=== PATIENT | female | born 1970 | race Caucasian/White ===

== ENCOUNTER 2016-09-27 16:02 | Emergency (ER) ==
[2016-09-27 16:05] VITALS: BP 124/85; TEMP 98.3; BMI 38.0
[2016-09-27] MEDS ORDERED: DILAUDID 2 MG/ML SYRINGE IM STA ×2 (16:12→17:05)
[2016-09-27] MEDS ORDERED: PHENERGAN 25 MG/ML VIAL IM STA (16:12)
--- NOTE | 2016-09-27 16:22 | ED.PDOC ---
General ED Provider: Dr. DINORA MENJIVAR Chief Complaint: Headache Stated Complaint: Been hurting in the head since , taking dilauded, not helping. Time Seen by Physician: 16:20 Mode of Arrival: Walk-In Information Source: Patient Primary Care Provider: ESTEBAN YIN Nursing and Triage Documentation Reviewed and Agree: Yes Neurological Complaint Exam - Headache Complaint/Exam Onset: Gradual Symptoms Are: Still present Timing: Constant Episodes Lasting: Days Worst Headache Ever: No Initial Severity: Severe Current Severity: Severe Location: Right, Left, Frontal Character: Reports: Typical headache Aggravating: Reports: Exertion, Bright lights Alleviating: Reports: None Associated Signs and Symptoms: Reports: Nausea. Denies: Dizziness, Seizure, Vomiting, Sinus pressure, Fever, Neck pain, Neck stiffness, Decreased LOC, Visual changes Related History: Reports: Similar episode Related Surgical History: Reports: None SAH Risk Factors: Reports: None Meningitis Risk Factors: Reports: None SDH Risk Factors: Reports: None Temporal Arteritis Risk Factors: Reports: None Normal Head CT Within Last 12 Months: Yes Fundoscopic Exam: Present: Normal Findings Papilledema Present: No Temporal Artery Tenderness: Present: None Sinus Tenderness: Present: None TMJ Tenderness: Present: None Meningeal Signs Positive: No Pain on Passive Flexion-Positive Kernig's: No ROM Limited In: No Limitiations Focal Weakness: Present: None Focal Sensory Loss: Present: None Gait: Normal Nystagmus Present: Yes Gag Reflex Present: Yes [id number]: Normal Findings Romberg Test Positive: No Babinski Sign: Negative Right, Negative Left Differential Diagnoses: Migraine Review of Systems - Review Of Systems Constitutional: Reports: No symptoms Eyes: Reports: No symptoms Ears, Nose, Mouth, Throat: Reports: No symptoms Respiratory: Reports: No symptoms Cardiac: Reports: No symptoms GI: Reports: No symptoms : Reports: No symptoms Musculoskeletal: Reports: No symptoms Skin: Reports: No symptoms Neurological: Reports: Headache Endocrine: Reports: No symptoms Hematologic/Lymphatic: Reports: No symptoms All Other Systems: Reviewed and Negative Past Medical History - Past Medical History Previously Healthy: No Endocrine: Reports: None Cardiovascular: Reports: None Respiratory: Reports: Asthma Hematological: Reports: None Gastrointestinal: Reports: None Genitourinary: Reports: None Neuro/Psych: Reports: Migraine, Anxiety Musculoskeletal: Reports: None Cancer: Reports: None Last Menstrual Period: now - Surgical History General Surgical History: Reports: - Family History Family History: Reports: None - Social History Smoking Status: Never smoker Hx Substance Use: No Alcohol Screening: Occasionally Physical Exam - Physical Exam Appearance: Ill-appearing, Obese Eyes: EOMI, Conjunctiva clear ENT: Ears normal, Nose normal, Oropharynx normal Respiratory: Airway patent, Breath sounds clear, Breath sounds equal, Respirations nonlabored Cardiovascular: RRR, Pulses normal, No rub, No murmur GI/: Soft, Nontender, No masses, Bowel sounds normal, No Organomegaly Musculoskeletal: Normal strength, ROM intact, No edema, No calf tenderness Skin: Warm, Dry, Normal color Neurological: Sensation intact, Motor intact, Reflexes intact, Cranial nerves intact, Alert, Oriented Psychiatric: Affect appropriate, Mood appropriate Re-Evaluation - Re-Evaluation Time of Re-Evaluation: 17:40 (better) Status: Improved Critical Care Note - Critical Care Note Total Time (mins): 0 Course - Course Orders, Labs, Meds: Orders Category Date Time Status Hydromorphone HCl/Pf [Dilaudid 2 mg/ml Syringe] MEDS 09/27/16 16:12 Discontinued 2 mg IM ONCE STA Hydromorphone HCl/Pf [Dilaudid 2 mg/ml Syringe] MEDS 09/27/16 17:05 Discontinued 2 mg IM ONCE STA Promethazine HCl [Phenergan 25 mg/ml Vial] MEDS 09/27/16 16:12 Discontinued 25 mg IM ONCE STA Medications Discontinued Medications Generic Name Dose Route Start Last Admin Trade Name Freq PRN Reason Stop Dose Admin Hydromorphone HCl 2 mg 09/27/16 16:12 09/27/16 16:23 Dilaudid 2 Mg/Ml Syringe IM 09/27/16 16:13 2 mg ONCE STA Administration Hydromorphone HCl 2 mg 09/27/16 17:05 09/27/16 17:12 Dilaudid 2 Mg/Ml Syringe IM 09/27/16 17:06 2 mg ONCE STA Administration Promethazine HCl 25 mg 09/27/16 16:12 09/27/16 16:22 Phenergan 25 Mg/Ml Vial IM 09/27/16 16:13 25 mg ONCE STA Administration Vital Signs: Temp Pulse Resp BP Pulse Ox 09/27/16 16:02 98.3 F 81 16 124/85 95 Departure - Departure Time of Disposition: 17:41 Disposition: HOME SELF-CARE Discharge Problem: Migraine Qualifiers: Migraine type: without aura Status migrainosus presence: without status migrainosus Intractability: not intractable Qualifier Code: (G43.009) Migraine without aura, not intractable, without status migrainosus Instructions: Migraine Headache (ED) Condition: Stable Pt referred to PMD for follow-up: Yes Additional Instructions: needs f/u Neuro keep taking medications Allergies/Adverse Reactions: Allergies No Known Allergies Allergy (Verified 09/27/16 16:05) Home Medications: Ambulatory Orders Promethazine HCl [Phenergan Tab] 25 mg PO Q6HR PRN 07/23/13 Albuterol Sulfate [Proair Hfa] 2 puff IH Q6H PRN 08/27/13 Topiramate [Topamax] 200 mg PO BID 12/16/13 Cyclobenzaprine HCl [Flexeril] 5 mg PO DAILY PRN 06/29/14 Hydromorphone HCl [Dilaudid] 2 mg PO PRN PRN 07/12/16 Disposition Discussed With: Patient
== END 2016-09-27 17:50 | disposition home or self-care (01) ==
LOC: ED 16:02
DX: G43.009 Migraine without aura, not intractable, without status migrainosus (principal); Z79.899 Other long term (current) drug therapy
CPT/HCPCS: 96372; 99283

== ENCOUNTER 2017-08-23 19:34 | Emergency (ER) ==
[2017-08-23 19:41] VITALS: BP 130/85; TEMP 99; BMI 36.0
[2017-08-23] MEDS ORDERED: DUONEB NEB STA (19:52)
--- NOTE | 2017-08-23 19:56 | ED.PDOC ---
General ED Provider: Dr. DINORA MENJIVAR Chief Complaint: Shortness of Air Stated Complaint: Been coughing, congested, got steroid IM today, not better, shortness of breath. no fever or chills. Time Seen by Physician: 19:52 Mode of Arrival: Walk-In Information Source: Patient Primary Care Provider: ESTEBAN YIN Nursing and Triage Documentation Reviewed and Agree: Yes Reviewed sepsis parameters & appropriate labs ordered?: No System Inflammatory Response Syndrome: Not Applicable Sepsis Protocol: For patient's 13 years and over: Temp is 96.8 and below OR 101 and greater Pulse >90 BPM Resp >20/minute Acutely Altered Mental Status Are patient's symptoms suggestive of a new infection, such as: -Pneumonia -Skin, Soft Tissue -Endocarditis -UTI -Bone, Joint Infection -Implantable Device -Acute Abdominal Infection -Wound Infection -Meningitis -Blood Stream Catheter Infection -Unknown Respiratory Complaint Exam - Respiratory Complaint/Exam Symptoms Are: Still present Timing: Constant Initial Severity: Mild Current Severity: Mild Location: Nose, Chest Character: Reports: Non-productive cough Aggravating: Reports: Allergens, URI Alleviating: Reports: None Associated Signs and Symptoms: Reports: Dyspnea, URI, Nasal congestion, Hoarseness. Denies: Rapid breathing, Fever, Chills, Chest pain, Pleuritic chest pain, Wheezing, Hemoptysis, Dizziness, Calf pain, Calf swelling, Edema, Sinus discomfort, Vomiting, Sore throat, Weight loss, Decreased oral intake, Increased thirst, Increased appetite, Increased urination Related History: Reports: Similar episode History of Healthcare-Acquired Pneumonia: No Related Surgical History: Reports: None Pulmonary Embolism Risk Factors: None Cardiac Risk Factors: Reports: None Pseudomonas Risk Factors: Reports: None Tuberculosis Risk Factors: Reports: None Status Asthmaticus Risk Factors: Reports: None Home Oxygen Use: No Recent Stress Test: No Recent Echo/LV Function: No Current Antibiotic Use: No Current Asthma Medication Use: No Respiratory Distress: None Inadequate Respiratory Effort: No Dysphagia Present: No Stridor Present: No JVD Present: No Accessory Muscle Use: No Retractions: Not Present Diminished Breath Sounds: No Sinus Tenderness: None Grunting Respirations: No Kussmaul Respirations: No Differential Diagnoses: Pneumonia, Bronchitis Review of Systems - Review Of Systems Constitutional: Reports: No symptoms Eyes: Reports: No symptoms Ears, Nose, Mouth, Throat: Reports: No symptoms Respiratory: Reports: Cough, Short of air Cardiac: Reports: No symptoms GI: Reports: No symptoms : Reports: No symptoms Musculoskeletal: Reports: No symptoms Skin: Reports: No symptoms Neurological: Reports: No symptoms Endocrine: Reports: No symptoms Hematologic/Lymphatic: Reports: No symptoms All Other Systems: Reviewed and Negative Past Medical History - Past Medical History Previously Healthy: No Endocrine: Reports: None Cardiovascular: Reports: None Respiratory: Reports: Asthma Hematological: Reports: None Gastrointestinal: Reports: None Genitourinary: Reports: None Neuro/Psych: Reports: Migraine, Anxiety Musculoskeletal: Reports: None Cancer: Reports: None Last Menstrual Period: 07/2017 - Surgical History General Surgical History: Reports: - Family History Family History: Reports: None - Social History Smoking Status: Never smoker Hx Substance Use: No Alcohol Screening: Occasionally - Immunizations Tetanus Shot up to Date: Yes Physical Exam - Physical Exam Appearance: Well-appearing, No pain distress, Well-nourished Eyes: JEAN MARIE, EOMI, Conjunctiva clear ENT: Ears normal, Nose normal, Oropharynx normal Respiratory: Airway patent, Breath sounds clear, Breath sounds equal, Respirations nonlabored Cardiovascular: RRR, Pulses normal, No rub, No murmur GI/: Soft, Nontender, No masses, Bowel sounds normal, No Organomegaly Musculoskeletal: Normal strength, ROM intact, No edema, No calf tenderness Skin: Warm, Dry, Normal color Neurological: Sensation intact, Motor intact, Reflexes intact, Cranial nerves intact, Alert, Oriented Psychiatric: Affect appropriate, Mood appropriate Interpretation - Radiology Interpretation Radiology Interpretation By: ED Physician Radiology Results: Negative Exam Interpreted: CXR Critical Care Note - Critical Care Note Total Time (mins): 20 Course - Course Hematology/Chemistry: 08/23/17 20:10 08/23/17 20:10 Orders, Labs, Meds: Lab Review 08/23/17 08/23/17 08/23/17 20:10 20:10 20:10 WBC 12.32 H RBC 4.37 Hgb 12.7 Hct 38.2 MCV 87.4 MCH 29.1 MCHC 33.2 RDW Coeff of Crys 13.4 Plt Count 471 H Immature Gran % (Auto) 1.0 Neut % (Auto) 88.7 Lymph % (Auto) 9.2 L [place] % (Auto) 0.6 Eos % (Auto) 0.1 Baso % (Auto) 0.4 Immature Gran # (Auto) 0.1 Neut # 10.9 H Lymph # 1.1 [place] # 0.1 L Eos # 0.0 Baso # 0.1 D-Dimer (Manual) 269.12 Sodium 139 Potassium 4.3 Chloride 107 Carbon Dioxide 20 L Anion Gap 16.3 BUN 16 Creatinine 0.84 Estimated GFR (MDRD) 73.00 BUN/Creatinine Ratio 19.04 Glucose 226 H Calcium 9.7 Total Bilirubin 0.4 AST 42 H ALT 46 Alkaline Phosphatase 123 H Total Protein 8.1 Albumin 3.6 Globulin 4.5 Albumin/Globulin Ratio 0.80 Orders Category Date Time Status NEBULIZER TREATMENT Stat CARDIO 08/23/17 19:52 Completed CBC W/ AUTO DIFF Stat LAB 08/23/17 20:10 Completed COMPREHENSIVE METABOLIC PANEL Stat LAB 08/23/17 20:10 Completed D-DIMER Stat LAB 08/23/17 20:10 Completed Ipratropium/Albuterol Neb [Duoneb] MEDS 08/23/17 19:52 Discontinued 1 vial NEB ONCE STA CHEST, 2 VIEWS PA & LAT Stat RADS 08/23/17 19:52 Taken Medications Discontinued Medications Generic Name Dose Route Start Last Admin Trade Name Freq PRN Reason Stop Dose Admin Albuterol/Ipratropium 1 vial 08/23/17 19:52 08/23/17 20:09 Duoneb NEB 08/23/17 19:53 1 vial ONCE STA Administration Vital Signs: Temp Pulse Resp BP Pulse Ox 08/23/17 19:35 99 F 93 H 20 130/85 99 Departure - Departure Time of Disposition: 21:33 Disposition: HOME SELF-CARE Discharge Problem: URTI (acute upper respiratory infection) Instructions: Upper Respiratory Infection (ED) Condition: Stable Pt referred to PMD for follow-up: Yes IPMP verified?: No Additional Instructions: Increase Hydration Probiotics Prescriptions: Azithromycin [Zithromax] 250 mg PO DIRECTED #6 tablet Prednisone 10 mg PO BIDWM #14 tablet Allergies/Adverse Reactions: Allergies hydromorphone [From Dilaudid] Adverse Reaction (Verified 09/27/16 18:01) patient was seen in er on 09/27/16 and given 2 shots of dilaudid and patient c/ o itching after 2nd shot. patient did not want to list as an allergy because she was afraid she would not receive any more in er. explained I would have to list it due to next time reaction could be worse. Home Medications: Ambulatory Orders Topiramate [Topamax] 200 mg PO BID 12/16/13 Cyclobenzaprine HCl [Flexeril] 5 mg PO DAILY PRN 06/29/14 Hydromorphone HCl [Dilaudid] 2 mg PO PRN PRN 07/12/16 Azithromycin [Zithromax] 250 mg PO DIRECTED #6 tablet 08/23/17 Budesonide/Formoterol Fumarate [Symbicort 80-4.5 Mcg Inhaler] 1 puff IN PRN PRN 08/23/17 Prednisone 10 mg PO BIDWM #14 tablet 08/23/17 Disposition Discussed With: Patient, Family
--- NOTE | 2017-08-24 07:23 | DI ---
EXAM: PA and lateral views of the chest HISTORY: Cough. COMPARISON: Chest x-ray 12/05/2008 FINDINGS: The cardiomediastinal silhouette is normal. There is no pneumothorax or pleural effusion. There is no consolidation, nodule or mass. Left calcified granuloma is present. The osseous struc tures are unremarkable. IMPRESSION: No acute cardiopulmonary process
== END 2017-08-23 21:50 | disposition home or self-care (01) ==
LOC: ED 19:34
DX: J06.9 Acute upper respiratory infection, unspecified (principal); R06.02 Shortness of breath
CPT/HCPCS: 36415; 80053; 85025; 85379; 94640; 99283

== ENCOUNTER 2018-06-08 12:56 | Emergency (ER) ==
[2018-06-08 13:00] VITALS: BP 138/89; TEMP 97.6; BMI 36.8
--- NOTE | 2018-06-08 13:15 | ED.PDOC ---
General ED Provider: Dr. LUIGI ROLAND Chief Complaint: Headache Stated Complaint: Migraine PERDOMO Time Seen by Physician: 13:05 Mode of Arrival: Walk-In Information Source: Patient Primary Care Provider: ESTEBAN YIN Nursing and Triage Documentation Reviewed and Agree: Yes Does patient meet sepsis criteria?: No System Inflammatory Response Syndrome: Not Applicable Sepsis Protocol: For patient's 13 years and over: Temp is 96.8 and below OR 101 and greater Pulse >90 BPM Resp >20/minute Acutely Altered Mental Status Are patient's symptoms suggestive of a new infection, such as: -Pneumonia -Skin, Soft Tissue -Endocarditis -UTI -Bone, Joint Infection -Implantable Device -Acute Abdominal Infection -Wound Infection -Meningitis -Blood Stream Catheter Infection -Unknown Neurological Complaint Exam - Headache Complaint/Exam Onset: Gradual (Wednesday 5 days [employer]) Duration: 5 days Symptoms Are: Still present Timing: Constant Worst Headache Ever: No (Similar to usual but not responding to usual home treatment) Initial Severity: Mild Current Severity: Moderate Location: Diffuse Character: Reports: Throbbing Aggravating: Reports: Exertion, Position change, Bright lights Alleviating: Reports: None Associated Signs and Symptoms: Reports: Nausea. Denies: Vomiting, Neck pain Related History: Reports: Similar episode Related Surgical History: Reports: None Review of Systems - Review Of Systems Constitutional: Reports: Malaise Eyes: Reports: Other (Light sensative) Respiratory: Reports: No symptoms All Other Systems: Reviewed and Negative Past Medical History - Past Medical History Previously Healthy: No Endocrine: Reports: None Cardiovascular: Reports: None Respiratory: Reports: Asthma Hematological: Reports: None Gastrointestinal: Reports: None Genitourinary: Reports: None Neuro/Psych: Reports: Migraine, Anxiety Musculoskeletal: Reports: None Cancer: Reports: None Last Menstrual Period: now - Surgical History General Surgical History: Reports: - Family History Family History: Reports: None - Social History Smoking Status: Never smoker Hx Substance Use: No Alcohol Screening: Occasionally Physical Exam - Physical Exam Appearance: Ill-appearing Ill-appearing: Mild (uncomvortable with photophobia) Pain Distress: Moderate (headache X 5 days) Eyes: JEAN MARIE, EOMI, Right pupil size (5 mm), Left pupil size (5 mm) Neck: Supple (Chin to chest) Respiratory: Airway patent, Respirations nonlabored Skin: Warm, Dry Neurological: Sensation intact, Motor intact, Alert, Oriented Psychiatric: Affect appropriate Critical Care Note - Critical Care Note Total Time (mins): 25 Course - Course Orders, Labs, Meds: Lab Review 06/08/18 06/08/18 13:45 13:45 Urine Color Yellow Urine Clarity Slightly Urine pH 8.5 Ur Specific [place] 1.015 Urine Protein 2+ Urine Glucose (UA) Negative Urine Ketones Negative Urine Blood 3+ Urine Nitrite Negative Urine Bilirubin Negative Urine Urobilinogen 0.2 Ur Leukocyte Esterase Trace Urine Microscopic RBC 50-100 Urine Microscopic WBC 0-2 Ur Squamous Epith Cells Not present Urine Opiates Screen Positive Ur Oxycodone Screen Negative Urine Methadone Screen Negative Ur Propoxyphene Screen Negative Ur Barbiturates Screen Negative U Tricyclic Antidepress Negative Ur Phencyclidine Scrn Negative Ur Amphetamine Screen Negative U Methamphetamines Scrn Negative U Benzodiazepines Scrn Negative Urine Cocaine Screen Negative U Cannabinoids Screen Negative Orders Category Date Time Status DRUG SCREEN (RAPID FOR ED) [DRUG SCREEN, URINE, RAPID] LAB 06/08/18 13:45 Completed Stat URINALYSIS C & S IF INDICATED Stat LAB 06/08/18 13:45 Completed Nalbuphine HCl [Nubain] MEDS 06/08/18 15:10 Discontinued 10 mg IVP ONCE STA Nalbuphine HCl [Nubain] MEDS 06/08/18 13:18 Discontinued 20 mg IVP ONCE STA Promethazine HCl [Phenergan 25 mg/ml Vial] MEDS 06/08/18 13:51 Discontinued 25 mg .ROUTE .STK-MED ONE Promethazine HCl [Phenergan 25 mg/ml Vial] 12.5 mg MEDS 06/08/18 13:17 Discontinued 0.9 % Sodium Chloride [Sodium Chloride] 50 ml IV ONCE Sodium Chloride 0.9% [Sodium Chloride] 1,000 ml MEDS 06/08/18 13:17 Discontinued IV BOLUS Medications Discontinued Medications Generic Name Dose Route Start Last Admin Trade Name Freq PRN Reason Stop Dose Admin Promethazine HCl 12.5 mg/ 50.5 mls @ 75 mls/hr 06/08/18 13:17 06/08/18 14:00 Sodium Chloride IV 06/08/18 13:57 75 mls/hr ONCE STA Administration Sodium Chloride 1,000 mls @ 1,000 mls/hr 06/08/18 13:17 06/08/18 14:05 Sodium Chloride IV 06/08/18 14:16 1,000 mls/hr BOLUS STA Administration Nalbuphine HCl 20 mg 06/08/18 13:18 06/08/18 13:58 Nubain IVP 06/08/18 13:19 20 mg ONCE STA Administration Nalbuphine HCl 10 mg 06/08/18 15:10 06/08/18 15:20 Nubain IVP 06/08/18 15:11 10 mg ONCE STA Administration Vital Signs: Temp Pulse Resp BP Pulse Ox 06/08/18 12:57 97.6 F 79 20 138/89 98 Departure - Departure Time of Disposition: 15:29 Disposition: HOME SELF-CARE Discharge Problem: Headache Qualifiers: Headache type: unspecified Headache chronicity pattern: episodic headache Intractability: not intractable Qualified Code(s): R51 - Headache Instructions: Acute Headache (ED) Condition: Stable Pt referred to PMD for follow-up: Yes IPMP verified?: Yes (No information) Additional Instructions: No record Prescriptions: Promethazine HCl [Phenergan Tab] 25 mg PO Q6H #14 tablet Allergies/Adverse Reactions: Allergies hydromorphone [From Dilaudid] Adverse Reaction (Verified 09/27/16 18:01) patient was seen in er on 09/27/16 and given 2 shots of dilaudid and patient c/ o itching after 2nd shot. patient did not want to list as an allergy because she was afraid she would not receive any more in er. explained I would have to list it due to next time reaction could be worse. Home Medications: Ambulatory Orders Topiramate [Topamax] 200 mg PO BID 12/16/13 Cyclobenzaprine HCl [Flexeril] 5 mg PO DAILY PRN 06/29/14 Budesonide/Formoterol Fumarate [Symbicort 80-4.5 Mcg Inhaler] 1 puff IN PRN PRN 08/23/17 Bisoprolol Fumarate 5 mg PO DAILY 06/08/18 Duloxetine HCl [Cymbalta] 60 mg PO DAILY 06/08/18 Promethazine HCl [Phenergan Tab] 25 mg PO Q6H #14 tablet 06/08/18 Sumatriptan Succinate [Imitrex] 100 mg PO PRN PRN 06/08/18
[2018-06-08] MEDS ORDERED: SODIUM CHLORIDE 1,000 ML IV STA (13:17)
[2018-06-08] MEDS ORDERED: PHENERGAN 25 MG/ML VIAL 12.5 MG in SODIUM CHLORIDE 50 ML IV STA (13:17)
[2018-06-08] MEDS ORDERED: NUBAIN IVP STA ×2 (13:18→15:10)
[2018-06-08] MEDS ORDERED: PHENERGAN 25 MG/ML VIAL ONE (13:51)
== END 2018-06-08 16:10 | disposition home or self-care (01) ==
LOC: ED 12:56
DX: R51 Headache (principal)
CPT/HCPCS: 80306; 81001; 96361; 96365; 96375; 96376; 99283